=== PATIENT | male | born 1960 | race Caucasian/White ===

== ENCOUNTER 2020-05-19 20:31 | Emergency (ER) | payer OTHER ==
[~2020-05-19] VITALS: Ht 185.4 cm; Wt 125.0 kg
--- NOTE | 2020-05-19 20:56 | NUR ---
PROVIDER AT BESIDE
--- NOTE | 2020-05-19 21:02 | NUR ---
PT COMES IN C/O INABILITY TO WALK. PT STATES "I WOKE UP AT 5AM AND COULDNT WALK. I JUST CANT LIFT MY LEGS. THE PAIN IS JUST EXCRUCIATING". PT DENIES LOSS OF BOWEL/BLADDER CONTROL. MONITORS CONNECTED. CALL LIGHT W/I REACH
[2020-05-19] MEDS ORDERED: KETOROLAC 30 MG/1 ML ONE (21:07)
[2020-05-19] MEDS ORDERED: METHOCARBAMOL 750 MG TABLET ONE (21:07)
--- NOTE | 2020-05-19 21:14 | NUR ---
ORDERED MEDICATIONS ADMINISTERED. PT SITTING UP IN BED. DAUGHTER AT BEDSIDE.
[2020-05-19] MEDS ORDERED: OXYC-307 PO (21:18)
[2020-05-19] MEDS ORDERED: IBUP-653 PO (21:18)
[2020-05-19] MEDS ORDERED: KETOROLAC 30 MG/1 ML IM ONE (21:30)
[2020-05-19] MEDS ORDERED: METHOCARBAMOL 750 MG TABLET PO ONE (21:30)
[2020-05-19 22:03] VITALS: BP 120/56
--- NOTE | 2020-05-19 22:04 | NUR ---
PT RESTING ON GURNEY. PROVIDER AT BEDSIDE TO DISCUSS RESULTS. QUESTIONS ANSWERED. VSS. NAD. CALL LIGHT W/IN REACH.
--- NOTE | 2020-05-19 22:05 | NUR ---
REPORT GIVEN TO ABDIRIZAK
--- NOTE | 2020-05-19 22:28 | NUR ---
Patient given discharge instructions and they have confirmed that they understand the instructions. Patient ambulatory with walker.
== END 2020-05-19 22:30 | disposition home or self-care (01) ==
LOC: ED 22:00
DX: S39.012A Strain of muscle, fascia and tendon of lower back, initial encounter (principal); X58.XXXA Exposure to other specified factors, initial encounter; Y93.89 Activity, other specified; Y92.89 Other specified places as the place of occurrence of the external cause; Y99.8 Other external cause status
CPT/HCPCS: 72110; 96372; 99283; J1885